=== PATIENT | female | born 1935 | race Caucasian/White ===

== ENCOUNTER 2016-11-12 14:07 | Emergency (ER) | payer OTHER ==
[~2016-11-12] VITALS: Ht 165.1 cm; Wt 68.0 kg
[2016-11-12 14:56] LABS: PATH.CAST-FLAG NOT PRESENT; SPERM-FLAG NOT PRESENT; SRC-FLAG NOT PRESENT; XTAL-FLAG NOT PRESENT; YLC-FLAG NOT PRESENT
[2016-11-12 15:03] LABS: HEMATOCRIT 38.9 % (34.6-47.8); HEMOGLOBIN 12.6 g/dL (11.7-16.4); WHITE BLOOD COUNT 8.6 x10^3/uL (3.4-10)
[2016-11-12 15:19] LABS: ASPARTATE AMINO TRANSFERASE 21 U/L (15-37); BLOOD UREA NITROGEN 18 mg/dL (7-18)
[2016-11-12] MEDS ORDERED: METF10002 PO (16:07)
[2016-11-12] MEDS ORDERED: ALLO300T PO (16:10)
[2016-11-12] MEDS ORDERED: LEVO100T5 PO (16:10)
[2016-11-12] MEDS ORDERED: LISI-167 PO (16:10)
[2016-11-12] MEDS ORDERED: SIMV20TA3 PO (16:10)
[2016-11-12] MEDS ORDERED: ONDANSETRON ODT 4 MG PO ONE (17:00)
[2016-11-12] MEDS ORDERED: OXYcodone/APAP 5/325MG TABLET PO ONE (17:00)
[2016-11-12 17:40] VITALS: BP 139/78
== END 2016-11-12 17:41 | disposition home or self-care (01) ==
LOC: ED 17:30
DX: S39.012A Strain of muscle, fascia and tendon of lower back, initial encounter (principal); M51.36 Other intervertebral disc degeneration, lumbar region; E11.9 Type 2 diabetes mellitus without complications; W18.00XA Striking against unspecified object with subsequent fall, initial encounter; Y93.89 Activity, other specified; Y92.098 Other place in other non-institutional residence as the place of occurrence of the external cause; Y99.8 Other external cause status; Z88.5 Allergy status to narcotic agent
CPT/HCPCS: 36415; 70450; 72110; 72190; 80053; 81001; 83880; 85025; 87077; 87086; 87186; 93005; 99285